=== PATIENT | male | born 1995 | race Two or more races ===

== ENCOUNTER 2017-05-12 17:33 | Emergency (ER) | payer OTHER ==
[~2017-05-12] VITALS: Ht 175.3 cm; Wt 90.7 kg
--- NOTE | 2017-05-12 17:40 | NUR ---
ALLERGIC REACTION, WITH REDNESS AND AND THROAT SWELLING S/P EXPOSURE TO HEAT, NAD NOTED, VSS, RESP EVEN AND UNLABORED. WAITING FOR MD VERDIN.
[2017-05-12] MEDS ORDERED: IV NS 0.9% 1,000 ML BAG IV ONE (18:00)
[2017-05-12] MEDS ORDERED: methylPREDNISolone SOD SUCC 125 MG/2ML VIAL IV ONE (18:00)
[2017-05-12] MEDS ORDERED: diphenhydrAMINE HCL 50 MG/ML VIAL IV ONE (18:00)
[2017-05-12] MEDS ORDERED: methylPREDNISolone SOD SUCC 125 MG/2ML VIAL ONE (18:14)
[2017-05-12] MEDS ORDERED: diphenhydrAMINE HCL 50 MG/ML VIAL ONE (18:14)
[2017-05-12] MEDS ORDERED: ACETAMINOPHEN 325 MG TABLET PO ONE (19:30)
[2017-05-12] MEDS ORDERED: ACETAMINOPHEN ES 500 MG TABLET ONE (19:32)
[2017-05-12 20:02] VITALS: BP 122/70
--- NOTE | 2017-05-12 20:04 | NUR ---
Patient discharged to home in stable condition. Written and verbal after care instructions given. Patient verbalizes understanding of instruction.IV removed. Catheter intact and site benign. Pressure and 4x4 applied to site. No bleeding noted. Prescriptions given.
== END 2017-05-12 20:03 | disposition home or self-care (01) ==
LOC: ER 17:34
DX: T78.40XA Allergy, unspecified, initial encounter (principal); X58.XXXA Exposure to other specified factors, initial encounter; Y93.89 Activity, other specified; Y92.89 Other specified places as the place of occurrence of the external cause; Y99.8 Other external cause status
CPT/HCPCS: 71045; 93005; 96361; 96374; 96375; 99284; A4606; J7030; Z7610